=== PATIENT | male | born 1975 | race Caucasian/White ===

== ENCOUNTER 2022-03-15 15:00 | Emergency (ER) | payer BC, OTHER ==
[2022-03-15 17:44] LABS: CORONAVIRUS COVID-19 NAA NEGATIVE (NEGATIVE)
== END 2022-03-15 17:45 ==
LOC: JD.ED 15:00
DX: Z53.21 Procedure and treatment not carried out due to patient leaving prior to being seen by health care provider (principal)
CPT/HCPCS: 0241U